=== PATIENT | female | born 1950 | race Caucasian/White ===

== ENCOUNTER → 2018-07-02 | Outpatient (CLI) | payer OTHER ==
--- NOTE | 2018-07-02 09:44 | FL ---
EXAMINATION: Cervical and Thoracic Esophagram DATE OF EXAM: 07/02/2018 CLINICAL INDICATION: None COMPARISON: 67-year-old female with GERD and dysphagia. Patient with history of Jaleel fundoplication 4 years ago with sensation of food getting stuck and needing to vomit. Worsening over the last year. Total Fluoroscopy Time: 2 minutes 8 seconds. Total images: 26. FINDINGS: The swallowing mechanism is normal and hypopharyngeal anatomy is preserved. There is mild anterior en dplate spondylosis minimally impressing on the posterior wall of the cervical esophagus. Otherwise, the cervical and thoracic portions have a normal course and caliber. The mucosa is normal and no persistent filling defect is encountered. Mild tertiary peristaltic contractions are demonstrated and there is some delay in clearance of contr ast from the lower esophagus. There are postsurgical changes of Jaleel fundoplication without any evidence for recurrent hernia or breakdown of the Jaleel wrap. There may be minimal relative narrowing at the GE junction. No signific ant narrowing seen. Gastroesophageal reflux could not be elicited with Valsalva or positional maneuvers. IMPRESSION: 1. Intact appearance to the Jaleel wrap. The caliber of the GE junction is normal to minimally narrow ed. Images are saved for review. 2. Mild tertiary peristaltic contractions and some delay in clearance of contrast from the lower esop hagus which appears to be secondary to altered esophageal motility. 3. Otherwise, no specific abnormality seen.
== END | disposition home or self-care (01) ==
LOC: RADFLWHC 07:50
PROVIDERS: ATTEND Surgery
DX: K22.4 Dyskinesia of esophagus (principal); K21.9 Gastro-esophageal reflux disease without esophagitis
CPT/HCPCS: 74220

== ENCOUNTER 2018-07-06 09:51 | Day surgery (SDC) | payer OTHER ==
[2018-07-04 13:28] VITALS: BMI 35.2
[~2018-07-06 09:51] MED LIST: LACTATED RINGERS 1,000 ML IV SCH
[2018-07-06 11:15] VITALS: RESP 16; TEMP 98.2
[2018-07-06] MEDS ORDERED: LIDOCAINE 1% 20 ML VIAL (10MG/ML) FOR IV START INTRADERMA ONE (11:27)
[2018-07-06] MEDS ORDERED: PROPOFOL 10 MG/ML 20 ML VIAL IV ONE (11:46)
--- NOTE | 2018-07-06 11:49 | P.GSHP ---
History of Present Illness H&P Date: 07/06/18 Chief Complaint: GERD, dysphagia This a 57-year-old female who's had some complaints of mild dysphagia and GERD. Patient presents today for EGD. Patient had a recent esophagram which shows no evidence of obstruction or recurrent hiatal hernia. Past Medical History Past Medical History: GERD/Reflux, Hypertension Additional Past Medical History / Comment(s): RECURRENT HIATAL HERNIA History of Any Multi-Drug Resistant Organisms: None Reported Past Surgical History: Cholecystectomy, Hysterectomy, Orthopedic Surgery Additional Past Surgical History / Comment(s): SARAHI FUNDOPLASTY-2013. LT KNEE SX. CYSTOCELE AND RECTOCELE Past Anesthesia/Blood Transfusion Reactions: No Reported Reaction Smoking Status: Former smoker - Past Family History Father Family Medical History: Cancer, Congestive Heart Failure (CHF) Medications and Allergies Home Medications Medication Instructions Recorded Confirmed Type Omeprazole [PriLOSEC] 20 mg PO AC-BRKFST 10/13/14 07/06/18 History Aspirin 81 mg PO DAILY 11/05/14 07/06/18 History Cholecalciferol [Vitamin D3] 1,000 unit PO DAILY@1200 11/05/14 07/06/18 History Losartan Potassium [Cozaar] 50 mg PO HS 07/04/18 07/06/18 History Metoprolol Succinate (ER) [Toprol 25 mg PO HS 07/04/18 07/06/18 History Xl] Sertraline [Zoloft] 50 mg PO DAILY 07/04/18 07/06/18 History Vitamin B Complex 1 each PO DAILY 07/04/18 07/06/18 History Allergies Allergy/AdvReac Type Severity Reaction Status Date / Time Sulfa (Sulfonamide Allergy Rash/Hives. Verified 07/06/18 11:13 Antibiotics) SWELLING. Surgical - Exam Vital Signs Temp Pulse Resp BP Pulse Ox 98.2 F 63 16 160/86 95 07/06/18 11:14 07/06/18 11:14 07/06/18 11:14 07/06/18 11:14 07/06/18 11:14 - General well developed, no distress - Eyes PERRL - ENT normal pinna - Neck no masses - Respiratory normal expansion - Cardiovascular Rhythm: regular - Abdomen Abdomen: soft, non tender Assessment and Plan Assessment: GERD, dysphagia. We'll perform EGD.
--- NOTE | 2018-07-06 11:59 | P.OP ---
Date of Procedure: 07/06/18 Preoperative Diagnosis: GERD, dysphagia Postoperative Diagnosis: Mild antral gastritis Procedure(s) Performed: EGD Anesthesia: MAC Surgeon: Lino Cordero Pathology: other (Antrum) Condition: stable Disposition: PACU Description of Procedure: The patient's placed on the endoscopy table in the lateral position. She received IV sedation. The the gastroscope placed oropharynx passed in the esophagus and stomach. Scope was then placed through the pylorus. The first second portion of the duodenum appeared normal. Scope was then brought back the antrum and this was mildly inflamed. A biopsy was performed. Scope was then retroflexed and the remainder some appeared normal. There was no significant hiatal hernia. The GE junction was at 40 cm. There is no evidence of a GE junction obstruction. The distal esophagus. Normal. The proximal esophagus.. Scope was withdrawn for patient.
[2018-07-06 12:24] VITALS: BP 112/73; PULSE 55
== END 2018-07-06 12:43 | disposition home or self-care (01) ==
LOC: ORWHC2ENDO 09:51
PROVIDERS: ATTEND Surgery
DX: K29.50 Unspecified chronic gastritis without bleeding (principal); K21.9 Gastro-esophageal reflux disease without esophagitis; R13.10 Dysphagia, unspecified; I10 Essential (primary) hypertension; E78.5 Hyperlipidemia, unspecified; Z87.891 Personal history of nicotine dependence; Z79.82 Long term (current) use of aspirin; Z79.899 Other long term (current) drug therapy; Z88.2 Allergy status to sulfonamides
CPT/HCPCS: 88305; 43239; J2704

== ENCOUNTER → 2018-09-12 | Outpatient (CLI) | payer OTHER ==
--- NOTE | 2018-09-12 13:36 | MR ---
EXAMINATION TYPE: MR brain wo/w con DATE OF EXAM: 09/12/2018 COMPARISON: 09/01/2016 HISTORY: Multiple sclerosis / TIA TECHNIQUE: Multiplanar, multisequence images of the brain and brainstem is performed without and with IV contras t, utilizing 9.5 mL intravenous Gadavist gadolinium contrast is administered intravenously. Demyelin ating disease protocol with additional Sagittal Flair sequence performed. FINDINGS: T2 Lesions Present : Yes Approximate Number of Lesions: Greater than 25 within the left hemisphere greater than 20 within the right hemisphere. Locations Identified : Pericallosal, juxtacortical, and periventricular. No infratentorial or spinal cord lesions. Size of Reference Lesion(s): 1. 0.6 cm x 0.4 cm x 0.6 cm on axial image 21 and sagittal image 12 2 1.1 cm x 0.5 cm x 0.6 cm on axial image 20 and sagittal image 29 Enhancing Lesion(s) Present: No T1 Hypointense Lesion(s) Present: Yes Change from Prior: Stable Diffusion weighted images demonstrate no evidence of a recent infarct or other diffusion abnormality. There is no worrisome extra-axial fluid collection. The ventricular system and cisternal spaces ar e normal in size and appearance. The brain volume is age appropriate. Midline structures demonstrate normal morphology. Incidental note is made of a 3 mm pineal gland cys t. The craniocervical junction appears within normal limits. Post contrast images demonstrate no abn ormal enhancement. The dural venous sinuses appear patent. The visualized sinuses are clear and the globes are intact. Probable lymph nodes are seen within the inferior parotid glands bilaterally. IMPRESSION: 1. Stable moderate burden white matter change in keeping with this patient's history of multiple scle rosis with no lesions restricting diffusion or demonstrating enhancement to suggest active demyelinat ion. No infratentorial or spinal cord lesions are seen. 2. No abnormal intracranial enhancement. No acute infarct, midline shift or mass effect.
== END | disposition home or self-care (01) ==
LOC: RADMRIMAIN 08:29
PROVIDERS: ATTEND Psychiatry & Neurology Neurology
DX: R90.89 Other abnormal findings on diagnostic imaging of central nervous system (principal); G35 Multiple sclerosis; G37.9 Demyelinating disease of central nervous system, unspecified; R42 Dizziness and giddiness; R26.89 Other abnormalities of gait and mobility
CPT/HCPCS: 82565; 84520; 70553; A9585

== ENCOUNTER → 2021-04-12 | Outpatient (CLI) | payer OTHER ==
[2021-04-12 15:33] LABS: Chol/HDL Ratio 2.43
== END | disposition home or self-care (01) ==
LOC: LABWHC1 08:11
PROVIDERS: ATTEND Internal Medicine Interventional Cardiology
DX: E78.2 Mixed hyperlipidemia (principal)
CPT/HCPCS: 36415; 80061; 84450; 84460

== ENCOUNTER → 2021-08-18 | Outpatient (CLI) | payer MEDICARE ==
[2021-08-18 18:36] LABS: African American GFR (CKD) 83.9 (60.0-200.0); Albumin 4.6 g/dL (3.8-4.9); Albumin/Globulin Ratio 2.25 (1.60-3.17); Anion Gap 12.1 mmol/L (4.00-12.00); BUN/Creat Ratio 17.66 Ratio (12.00-20.00); Blood Urea Nitrogen 14.5 mg/dL (9.0-27.0); Calcium 9.7 mg/dL (8.7-10.3); Carbon Dioxide 25.2 mmol/L (21.6-31.8); Chol/HDL Ratio 2.83 Ratio; HDL Cholesterol 77.3 mg/dL (40.00-60.00); LDL Cholesterol,Calculated 123.1 mg/dL (0.0-131.0); Non-African American GFR(CKD) 72.4 (60.0-200.0); Potassium 4.4 mmol/L (3.5-5.5); Total Bilirubin 0.5 mg/dL (0.30-1.20); Total Protein 6.6 g/dL (6.2-8.2); VLDL Calculation 18.6 mg/dL (5.00-40.00)
== END | disposition home or self-care (01) ==
LOC: LABWHC1 07:24
PROVIDERS: ATTEND Nurse Practitioner Adult Health
DX: I10 Essential (primary) hypertension (principal); E78.2 Mixed hyperlipidemia
CPT/HCPCS: 36415; 80053; 80061

== ENCOUNTER → 2022-02-10 | Outpatient (CLI) | payer MEDICARE ==
[2022-02-10 15:17] LABS: Chol/HDL Ratio 2.99 Ratio; LDL Cholesterol,Calculated 117.5 mg/dL (0.0-131.0); VLDL Calculation 18.96 mg/dL (5.00-40.00)
== END | disposition home or self-care (01) ==
LOC: LABWHC1 07:23
PROVIDERS: ATTEND Internal Medicine Interventional Cardiology
DX: E78.2 Mixed hyperlipidemia (principal)
CPT/HCPCS: 36415; 80061

== ENCOUNTER → 2022-05-31 | Outpatient (CLI) | payer MEDICARE ==
[2022-05-31 14:42] LABS: ALT 24 U/L (8-44); AST 19 U/L (13-35); African American GFR (CKD) 74.6 (60.0-200.0); Albumin 4.6 g/dL (3.8-4.9); Albumin/Globulin Ratio 1.92 (1.60-3.17); Alkaline Phosphatase 86 U/L (41-126); BUN/Creat Ratio 20.89 Ratio (12.00-20.00); Blood Urea Nitrogen 18.8 mg/dL (9.0-27.0); Calcium 9.8 mg/dL (8.7-10.3); Carbon Dioxide 25.1 mmol/L (20.0-27.5); Chloride 105 mmol/L (96-109); Chol/HDL Ratio 2.23 Ratio; Globulin 2.4 g/dL (1.6-3.3); Glucose 106 mg/dL (70-110); LDL Cholesterol,Calculated 78.8 mg/dL (0.0-131.0); Non-African American GFR(CKD) 64.3 (60.0-200.0); Potassium 4.1 mmol/L (3.5-5.5); Sodium 141 mmol/L (135-145)
== END | disposition home or self-care (01) ==
LOC: LABWHC1 07:18
PROVIDERS: ATTEND Internal Medicine Interventional Cardiology
DX: I10 Essential (primary) hypertension (principal); E78.2 Mixed hyperlipidemia
CPT/HCPCS: 36415; 80053; 80061

== ENCOUNTER → 2023-04-26 | Outpatient (CLI) | payer MEDICARE ==
[2023-04-26 11:18] LABS: ALT 30 U/L (8-44); AST 20 U/L (13-35); Chol/HDL Ratio 2.36 Ratio; LDL Cholesterol,Calculated 81.3 mg/dL (0.0-131.0)
== END | disposition home or self-care (01) ==
LOC: LABWHC1 06:49
PROVIDERS: ATTEND Internal Medicine Interventional Cardiology
DX: E78.2 Mixed hyperlipidemia (principal)
CPT/HCPCS: 36415; 80061; 84450; 84460

== ENCOUNTER → 2023-08-29 | Outpatient (CLI) | payer MEDICARE ==
[2023-08-29 10:46] LABS: MCH 30.9 pg (27.0-32.0); MCHC 31.8 g/dL (32.0-37.0); MCV 97.1 FL (80.0-97.0); Mean Platelet Volume 11.2 FL (9.5-12.2); NRBC Per 100 WBC 0 X 10*3/uL (0.00-0.01); Platelet Count 212 X 10*3/uL (140-440); RBC 4.53 X 10*6/uL (4.10-5.20); RDW 13.2 % (11.5-14.5); WBC 6.46 X 10*3/uL (4.50-10.00)
[2023-08-29 11:15] LABS: ALT 30 U/L (8-44); AST 19 U/L (13-35); Albumin 4.7 g/dL (3.8-4.9); Albumin/Globulin Ratio 2.14 Ratio (1.60-3.17); Alkaline Phosphatase 85 U/L (41-126); Blood Urea Nitrogen 19.7 mg/dL (9.0-27.0); Calcium 10.3 mg/dL (8.7-10.3); Carbon Dioxide 25.6 mmol/L (21.6-31.8); Chloride 104 mmol/L (96-109); Chol/HDL Ratio 1.99 Ratio; Globulin 2.2 g/dL (1.6-3.3); Glucose 111 mg/dL (70-110); LDL Cholesterol,Calculated 60.3 mg/dL (0.0-131.0); Potassium 4.4 mmol/L (3.5-5.5); Sodium 143 mmol/L (135-145); Total Bilirubin 0.7 mg/dL (0.3-1.2); Total Protein 6.9 g/dL (6.2-8.2); VLDL Calculation 19.94 mg/dL (5.00-40.00)
== END | disposition home or self-care (01) ==
LOC: LABWHC1 07:22
PROVIDERS: ATTEND Internal Medicine Interventional Cardiology
DX: I10 Essential (primary) hypertension (principal); E78.2 Mixed hyperlipidemia; K59.00 Constipation, unspecified; R53.83 Other fatigue
CPT/HCPCS: 36415; 80053; 80061; 84443; 85027

== ENCOUNTER → 2023-12-28 | Outpatient (CLI) | payer MEDICARE ==
--- NOTE | 2024-01-01 00:07 | MM ---
Reason for Exam: Screening (asymptomatic). Last screening mammogram was performed 12 month(s) ago. Patient History: Menarche at age 14. First Full-Term at age 18. Hysterectomy at age 31. Postmenopausal. Risk Values: Tonja 5 year model risk: 1.2%. NCI Lifetime model risk: 2.9%. Prior Study Comparison: 08/10/2020 Bilateral MG 3D screening mammo w/cad, [facility]. 08/30/2021 Bilateral Screening Mammogram, [facility]. 12/26/2022 Bilateral MG 3D screening mammo w/cad, [facility]. Tissue Density: There are scattered areas of fibroglandular density. Findings: Analyzed By CAD. Chronic nodularity on the right. There is no suspicious group of microcalcifications or new suspicious mass in either breast. Overall Assessment: Benign, BI-RAD 2 Management: Screening Mammogram of both breasts in 1 year. . Patient should continue monthly self-breast exams. A clinical breast exam by your physician is recommended on an annual basis. This exam should not preclude additional follow-up of suspicious palpable abnormalities. Note on Tonja scores and lifetime risk: 1. A Tonja score greater than 3% is considered moderate risk. If this is the case, consider specialist referral to assess eligibility for a risk reducing agent. 2. If overall lifetime risk for the development of breast cancer is 20% or higher, the patient may qualify for future screening with alternating mammogram and breast MRI. Electronically signed and approved by: Adeel Estevez M.D. Radiologist
== END | disposition home or self-care (01) ==
LOC: RADMAMWWP 12:31
PROVIDERS: ATTEND Family Medicine
DX: Z12.31 Encounter for screening mammogram for malignant neoplasm of breast (principal); Z78.0 Asymptomatic menopausal state
CPT/HCPCS: 77063; 77067

== ENCOUNTER 2024-04-03 10:43 | Day surgery (SDC) | payer MEDICARE ==
[2024-03-29 14:45] VITALS: BMI 37.8
[2024-04-03] MEDS ORDERED: LIDOCAINE 1% (10MG/ML) FOR IV START INTRADERMA PRN (10:50)
[2024-04-03 11:09] VITALS: TEMP 97.4
[2024-04-03] MEDS: IV FLUID CONTINUATION 1,000 ML IV ONE (11:13)
[2024-04-03] MEDS: LACTATED RINGERS 1,000 ML IV SCH (11:13)
[2024-04-03] MEDS ORDERED: PROPOFOL 10 MG/ML 20 ML VIAL IV ONE (11:55)
--- NOTE | 2024-04-03 12:10 | P.PCN ---
Date of Procedure: 04/03/24 Procedure(s) Performed: BRIEF HISTORY: Patient is a 73-year-old pleasant white female scheduled for an elective colonoscopy as a part of being for colon cancer. He was diagnosed with colon cancer in his 60s PROCEDURE PERFORMED: Colonoscopy. PREOPERATIVE DIAGNOSIS: Screening for colon cancer and family history of colon cancer. IV sedation per Anesthesia. PROCEDURE: After informed consent was obtained, the patient, was brought into the endoscopy unit. IV sedation was administered by Anesthesia under continuous monitoring. Digital rectal examination was normal. Initially the Olympus CF-160 flexible video colonoscope was then inserted in the rectum, gradually advanced into the cecum without any difficulty. Careful examination was performed as the scope was gradually being withdrawn. Ileocecal valve and the appendiceal orifice were visualized and appeared normal. Prep was excellent. Mucosa of the cecum, ascending colon, transverse colon, descending colon, sigmoid colon, and rectum appeared normal. Sigmoid diverticulosis. Retroflexion was performed in the rectum and no lesions were seen. The patient tolerated the procedure well. IMPRESSION: Normal-appearing colon from rectum to cecum no evidence of colorectal neoplasia Scattered sigmoid diverticula. RECOMMENDATIONS: Findings of this examination were discussed with the patient as well as her family. She was advised to repeat screening colonoscopy in 5 years because of a family history of colon cancer.
[2024-04-03] MEDS: IV FLUID CONTINUATION 500 ML IV ONE (12:13)
[2024-04-03 12:15] VITALS: BP 140/67; PULSE 69; RESP 16
== END 2024-04-03 13:01 | disposition home or self-care (01) ==
LOC: ORWHC2ENDO 10:43
PROVIDERS: ATTEND Internal Medicine Gastroenterology
DX: Z12.11 Encounter for screening for malignant neoplasm of colon (principal); K57.30 Diverticulosis of large intestine without perforation or abscess without bleeding; Z85.038 Personal history of other malignant neoplasm of large intestine; Z80.0 Family history of malignant neoplasm of digestive organs; I10 Essential (primary) hypertension; E78.5 Hyperlipidemia, unspecified; Z88.2 Allergy status to sulfonamides; F41.9 Anxiety disorder, unspecified; Z87.891 Personal history of nicotine dependence; Z79.899 Other long term (current) drug therapy; Z79.82 Long term (current) use of aspirin
CPT/HCPCS: J2704; G0105

== ENCOUNTER → 2025-01-27 | Outpatient (CLI) | payer MEDICARE ==
--- NOTE | 2025-01-27 10:17 | MM ---
Reason for Exam: Screening (asymptomatic). Last mammogram was performed 1 year(s) and 1 month(s) ago. Patient History: Menarche at age 14. First Full-Term at age 18. Hysterectomy at age 31. Postmenopausal. Risk Values: Tonja 5 year model risk: 1.2%. NCI Lifetime model risk: 2.7%. Prior Study Comparison: 08/30/2021 Bilateral Screening Mammogram, [facility]. 12/26/2022 Bilateral MG 3D screening mammo w/cad, [facility]. 12/28/2023 Bilateral MG 3D screening mammo w/cad, [facility]. Tissue Density: There are scattered areas of fibroglandular density. Findings: Analyzed By CAD. A few benign-appearing round calcifications in the bilateral breasts are redemonstrated. Benign-appearing Vascular calcification the left breast is again seen. There is no suspicious new group of microcalcifications or new suspicious mass in either breast. Overall Assessment: Benign, BI-RAD 2 Management: Screening Mammogram of both breasts in 1 year. . Patient should continue monthly self-breast exams. A clinical breast exam by your physician is recommended on an annual basis. This exam should not preclude additional follow-up of suspicious palpable abnormalities. Note on Tonja scores and lifetime risk: 1. A Tonja score greater than 3% is considered moderate risk. If this is the case, consider specialist referral to assess eligibility for a risk reducing agent. 2. If overall lifetime risk for the development of breast cancer is 20% or higher, the patient may qualify for future screening with alternating mammogram and breast MRI. [facility], , 01/27/2025 10:15 AM. Electronically signed and approved by: Gunner Curtis M.D.
== END | disposition home or self-care (01) ==
LOC: RADMAMWWP 09:31
PROVIDERS: ATTEND Family Medicine
DX: Z12.31 Encounter for screening mammogram for malignant neoplasm of breast (principal); R92.323 Mammographic fibroglandular density, bilateral breasts; Z78.0 Asymptomatic menopausal state
CPT/HCPCS: 77063; 77067

== ENCOUNTER → 2025-02-24 | Outpatient (CLI) | payer MEDICARE ==
[2025-02-24 10:31] LABS: ALT 29 U/L (8-44); AST 20 U/L (13-35); Chol/HDL Ratio 2.18 Ratio; LDL Cholesterol,Calculated 68.3 mg/dL (0.0-131.0); VLDL Calculation 18.94 mg/dL (5.00-40.00)
== END | disposition home or self-care (01) ==
LOC: LABWHC1 07:29
PROVIDERS: ATTEND Internal Medicine Interventional Cardiology
DX: E78.2 Mixed hyperlipidemia (principal)
CPT/HCPCS: 36415; 80061; 84450; 84460

== ENCOUNTER → 2025-03-29 | Outpatient (CLI) | payer MEDICARE ==
[2025-03-29 13:26] LABS: BUN/Creat Ratio 20.62 Ratio (12.00-20.00); Blood Urea Nitrogen 16.5 mg/dL (9.0-27.0); Carbon Dioxide 25.8 mmol/L (21.6-31.8); Chloride 102 mmol/L (96-109); Glucose 117 mg/dL (70-110); Potassium 4.2 mmol/L (3.5-5.5); Sodium 142 mmol/L (135-145)
== END | disposition home or self-care (01) ==
LOC: LABWHC1 08:07
PROVIDERS: ATTEND Internal Medicine Interventional Cardiology
DX: I10 Essential (primary) hypertension (principal)
CPT/HCPCS: 36415; 80048